=== PATIENT | male | born 1930 | race Caucasian/White ===

== ENCOUNTER → 2016-06-29 | Outpatient (REF) | payer MEDICARE, OTHER ==
[2016-06-29 19:09] LABS: INR 2.48
== END ==
LOC: M SFHCCLAY 09:58
PROVIDERS: ATTEND Family Medicine
DX: Z79.01 Long term (current) use of anticoagulants (principal)

== ENCOUNTER → 2016-07-13 | Outpatient (REF) | payer MEDICARE, OTHER ==
[2016-07-13 16:33] LABS: INR 2.5
== END ==
LOC: M SFHCCLAY 14:27
PROVIDERS: ATTEND Family Medicine
DX: Z79.01 Long term (current) use of anticoagulants (principal); I48.2 Chronic atrial fibrillation

== ENCOUNTER → 2016-08-10 | Outpatient (REF) | payer MEDICARE, OTHER ==
[2016-08-10 11:58] LABS: INR 2.45
== END ==
LOC: M SFHCCLAY 08:01
PROVIDERS: ATTEND Family Medicine
DX: Z79.01 Long term (current) use of anticoagulants (principal)

== ENCOUNTER → 2016-08-31 | Outpatient (REF) | payer MEDICARE, OTHER ==
[2016-08-31 16:19] LABS: INR 2.33
== END ==
LOC: M SFHCCLAY 09:56
PROVIDERS: ATTEND Family Medicine
DX: Z79.01 Long term (current) use of anticoagulants (principal)

== ENCOUNTER → 2016-09-08 | Outpatient (CLI) | payer MEDICARE, OTHER ==
--- NOTE | 2016-09-08 12:15 | REP ---
CERVICAL SPINE, SEVEN VIEWS: HISTORY: Radiculopathy. There is no acute fracture. The C2-3 through C7-T1 levels are decreased in height consistent with disc degeneration. Osteophytes are present on C2-7. There is narrowing of the C3-7 neural foramina secondary to uncinate process hypertrophy. There are 2 mm of anterior subluxation of C7 on T1. This is unchanged with extension. This level cannot be evaluated in the flexion radiograph. IMPRESSION: Degenerative change as described above.
== END ==
LOC: M CLY 10:51
PROVIDERS: ATTEND Family Medicine
DX: M54.12 Radiculopathy, cervical region (principal); M51.36 Other intervertebral disc degeneration, lumbar region; M25.78 Osteophyte, vertebrae; M50.321 Other cervical disc degeneration at C4-C5 level; M50.322 Other cervical disc degeneration at C5-C6 level; M50.323 Other cervical disc degeneration at C6-C7 level
CPT/HCPCS: 72050; G0463

== ENCOUNTER → 2016-09-15 | Outpatient (REF) | payer MEDICARE, OTHER ==
[2016-09-15 12:07] LABS: INR 4.76
== END ==
LOC: M SFHCCLAY 09:57
PROVIDERS: ATTEND Family Medicine
DX: Z79.01 Long term (current) use of anticoagulants (principal)

== ENCOUNTER → 2016-09-19 | Outpatient (REF) | payer MEDICARE, OTHER | LOC: M LABDRAWC 16:39 | PROVIDERS: ATTEND Urology | DX: Z85.46 Personal history of malignant neoplasm of prostate (principal) ==

== ENCOUNTER → 2016-10-06 | Outpatient (REF) | payer MEDICARE, OTHER ==
[2016-10-06 12:29] LABS: INR 2.23
== END ==
LOC: M SFHCCLAY 09:24
PROVIDERS: ATTEND Family Medicine
DX: Z79.01 Long term (current) use of anticoagulants (principal)

== ENCOUNTER → 2016-10-19 | Outpatient (REF) | payer MEDICARE, OTHER ==
[2016-10-19 12:06] LABS: INR 1.95
== END ==
LOC: M SFHCCLAY 09:50
PROVIDERS: ATTEND Family Medicine
DX: Z79.01 Long term (current) use of anticoagulants (principal)

== ENCOUNTER → 2017-04-05 | Outpatient (REF) | payer MEDICARE, OTHER ==
[~2017-04-05] MED LIST: ARIC1TAB PO; COLC1CAP PO; COUM1TAB19 PO; FURO40TA2 PO; LISI-538 PO; MULT1TAB18 PO; NAME28CA PO; PRAV40TA2 PO; VITA200015 PO
[2017-04-05 11:54] LABS: MEAN CORPUSCULAR HEMOGLOBIN 31.6 pg (27.0-33.0); MEAN CORPUSCULAR HGB CONC 33.5 g/dl (32.0-36.5); MEAN CORPUSCULAR VOLUME 94.5 fl (80.0-96.0); PLATELET COUNT, AUTOMATED 159 10^3/uL (150-450); RED CELL DISTRIBUTION WIDTH 13.3 % (11.5-14.5); WHITE BLOOD COUNT 6.8 10^3/uL (4.0-10.0)
[2017-04-05 12:19] LABS: ALBUMIN 3.9 GM/DL (3.2-5.2); ALBUMIN/GLOBULIN RATIO 1.34 (1.00-1.93); BILIRUBIN,TOTAL 1.3 MG/DL (0.2-1.0); CREATININE FOR GFR 1.29 MG/DL (0.70-1.30); GLOMERULAR FILTRATION RATE 55.8 (>35); MAGNESIUM LEVEL 2.4 MG/DL (1.8-2.4); POTASSIUM SERUM 4.3 MEQ/L (3.5-5.1); TOTAL PROTEIN 6.8 GM/DL (6.4-8.2)
== END ==
LOC: M LABDRAWC 11:27
PROVIDERS: ATTEND Physician Assistant
DX: E78.00 Pure hypercholesterolemia, unspecified (principal); I48.0 Paroxysmal atrial fibrillation; I11.9 Hypertensive heart disease without heart failure

== ENCOUNTER → 2017-05-10 | Outpatient (REF) | payer MEDICARE, OTHER ==
[2017-05-10 12:44] LABS: INR 2.65
== END ==
LOC: M SFHCCLAY 07:59
PROVIDERS: ATTEND Family Medicine
DX: Z79.01 Long term (current) use of anticoagulants (principal)

== ENCOUNTER → 2017-05-24 | Outpatient (REF) | payer MEDICARE, OTHER ==
[2017-05-24 11:28] LABS: INR 2.17
== END ==
LOC: M SFHCCLAY 08:04
PROVIDERS: ATTEND Family Medicine
DX: Z79.01 Long term (current) use of anticoagulants (principal)

== ENCOUNTER → 2017-06-07 | Outpatient (REF) | payer MEDICARE, OTHER ==
[2017-06-07 11:52] LABS: INR 2.28
== END ==
LOC: M SFHCCLAY 08:02
DX: Z79.01 Long term (current) use of anticoagulants (principal)
CPT/HCPCS: 85610

== ENCOUNTER → 2017-06-21 | Outpatient (REF) | payer MEDICARE, OTHER ==
[2017-06-21 12:29] LABS: INR 2.59; PROTHROMBIN TIME 28.8 SECONDS (12.4-14.5)
== END ==
LOC: M SFHCCLAY 07:52
DX: Z51.81 Encounter for therapeutic drug level monitoring (principal); Z79.01 Long term (current) use of anticoagulants
CPT/HCPCS: 85610

== ENCOUNTER → 2017-07-12 | Outpatient (REF) | payer MEDICARE, OTHER ==
[2017-07-12 12:06] LABS: INR 3.23; PROTHROMBIN TIME 34.5 SECONDS (12.4-14.5)
== END ==
LOC: M SFHCCLAY 07:29
DX: Z51.81 Encounter for therapeutic drug level monitoring (principal); Z79.01 Long term (current) use of anticoagulants
CPT/HCPCS: 85610

== ENCOUNTER → 2017-07-26 | Outpatient (REF) | payer MEDICARE, OTHER ==
[2017-07-26 11:14] LABS: INR 3.29
== END ==
LOC: M SFHCCLAY 07:49
DX: Z79.01 Long term (current) use of anticoagulants (principal)
CPT/HCPCS: 85610

== ENCOUNTER → 2017-08-23 | Outpatient (REF) | payer MEDICARE, OTHER ==
[2017-08-23 11:40] LABS: PROTHROMBIN TIME 33.4 SECONDS (12.4-14.5)
== END ==
LOC: M SFHCCLAY 08:19
DX: Z51.81 Encounter for therapeutic drug level monitoring (principal); Z79.01 Long term (current) use of anticoagulants
CPT/HCPCS: 85610

== ENCOUNTER → 2017-10-04 | Outpatient (REF) | payer MEDICARE, OTHER ==
[2017-10-04 13:08] LABS: APPEARANCE, URINE CLEAR (CLEAR); BACTERIA, URINE AUTO NEGATIVE (NEGATIVE); BILIRUBIN, URINE AUTO NEGATIVE (NEGATIVE); BLOOD, URINE BLOOD NEGATIVE (NEGATIVE); COLOR, URINE YELLOW (YELLOW); GLUCOSE, URINE (UA) AUTO NEGATIVE (NEGATIVE); KETONE, URINE AUTO NEGATIVE (NEGATIVE); LEUKOCYTE ESTERASE, URINE AUTO NEGATIVE (NEGATIVE); MUCUS, URINE SMALL (NEGATIVE); NITRITE, URINE AUTO NEGATIVE (NEGATIVE); PROTEIN, URINE AUTO NEGATIVE (NEGATIVE); RBC, URINE AUTO 0 /HPF (0-3); SPECIFIC GRAVITY URINE AUTO 1.011 (1.002-1.035); SQUAMOUS EPITHELIAL CELL UR AU 0 /HPF (0-6); UROBILINOGEN, URINE AUTO 0.2 mg/dL (0.0-2.0); WBC, URINE AUTO 1 /HPF (0-3)
== END ==
LOC: M SMT 12:43
DX: C61 Malignant neoplasm of prostate (principal)
CPT/HCPCS: 81001

== ENCOUNTER → 2017-10-05 | Outpatient (REF) | payer MEDICARE, OTHER | LOC: M SFHCCLAY 11:35 | DX: C61 Malignant neoplasm of prostate (principal) | CPT/HCPCS: 84153 ==